=== PATIENT | female | born 1980 | race Caucasian/White ===

== ENCOUNTER 2018-05-12 19:13 | Emergency (ER) | payer MEDICAID ==
[~2018-05-12] VITALS: Ht 157.5 cm; Wt 88.6 kg
[~2018-05-12 19:13] MED LIST: CARAFATE 1GM1 G PO; DILAUDID 2MG TAB2 MG PO; HYDROCODONE/APAP; LEVOTHYROXINE PO; MULTI VITAMINS1 TAB PO; NORCO 325 MG-51 TAB PO; PAXIL 20MG20 MG PO; PEPCID 20MG TAB20 MG; PERCOCET 325 MG1 TA2 PO; PHENERGAN25 MG RC; PROTONIX 40MG T40 MG PO; SYNTHROID0.112 MG/T PO; ULTRAM 50MG TAB50 MG PO
[2018-05-12 19:15] VITALS: BP 144/82; TEMP 97.9
[2018-05-12] MEDS ORDERED: CEPHALEXIN500 M1 PO (19:38)
[2018-05-12] MEDS ORDERED: AMBIEN 5MG TABLE5 MG PO (20:03)
[2018-05-12 20:04] VITALS: PULSE 90
[2018-05-12] MEDS ORDERED: NEURONTIN300 MG/CAP PO (20:04)
[2018-05-12] MEDS ORDERED: SINGULAIR 110 MG/TAB PO (20:04)
[2018-05-12] MEDS ORDERED: ROBAXIN 50500 MG/TAB PO (20:04)
== END 2018-05-12 20:06 | disposition home or self-care (01) ==
LOC: COL.ER 19:13
DX: T21.22XA Burn of second degree of abdominal wall, initial encounter (principal); F17.210 Nicotine dependence, cigarettes, uncomplicated; Z98.890 Other specified postprocedural states; Z98.51 Tubal ligation status; Z98.84 Bariatric surgery status; X10.2XXA Contact with fats and cooking oils, initial encounter

== ENCOUNTER 2018-07-08 17:28 | Emergency (ER) | payer MEDICAID ==
[~2018-07-08] VITALS: Ht 157.5 cm; Wt 86.4 kg
[~2018-07-08 17:28] MED LIST changes: +AMBIEN 5MG TABLE5 MG PO; +CEPHALEXIN500 M1 PO; +NEURONTIN300 MG/CAP PO; +ROBAXIN 50500 MG/TAB PO; +SINGULAIR 110 MG/TAB PO
[2018-07-08 17:31] VITALS: TEMP 98.7
[2018-07-08 18:53] LABS: BASO % 0.3 % (0.0-2.0); EOS # 0.3 (0.0-0.7); EOS % 2.7 % (0-4.0); GRAN # 6.5 (1.4-6.5); GRAN % 69.3 % (42.2-75.2); HEMATOCRIT 39.6 % (37.0-47.0); HEMOGLOBIN 12.8 g/dl (12.5-16.0); LYMPH % 21.5 % (20.0-51.0); MEAN CELL VOLUME 95 fl (80.0-100.0); MEAN CORPUSCULAR HEMOGLOBIN 31 pg (27.0-31.0); MEAN CORPUSCULAR HGB CONC 32 g/dl (33.0-37.0); MEAN PLATELET VOLUME 11.2 fl (7.4-10.4); MONO # 0.6 (0.1-0.6); PLATELET COUNT 246 K/mm3 (130-400); RED BLOOD COUNT 4.18 M/mm3 (4.10-5.30); REDCELL DISTRIBUTION WIDTH-CV 13.8 % (11.5-14.5)
[2018-07-08 19:03] LABS: ALBUMIN 4.2 gm/dL (3.5-5.0); BILIRUBIN,TOTAL 0.4 mg/dL (0.0-1.0); C-REACTIVE PROTEIN 0.8 mg/dL (0.0-0.9); CALCIUM 8.9 mg/dL (8.4-10.2); CREATININE, serum 0.74 mg/dL (0.52-1.25); POTASSIUM 3.7 mmol/L (3.4-5.0); TOTAL PROTEIN 7.9 gm/dL (6.4-8.2)
[2018-07-08 19:13] LABS: ERYTHROCYTE SEDIMENTATION RATE 18 mm/hr (0-20)
[2018-07-08] MEDS ORDERED: NORCO 325 MG-51 TAB PO (19:46)
[2018-07-08] MEDS ORDERED: VALTREX1 GM PO (19:49)
[2018-07-08 20:05] VITALS: BP 104/75; PULSE 56
== END 2018-07-08 20:06 | disposition home or self-care (01) ==
LOC: COL.ER 17:28
PROVIDERS: Physician Assistant
DX: H02.844 Edema of left upper eyelid (principal); E03.9 Hypothyroidism, unspecified; M79.7 Fibromyalgia; F17.210 Nicotine dependence, cigarettes, uncomplicated
CPT/HCPCS: J1885

== ENCOUNTER → 2018-10-16 | Outpatient (CLI) | payer OTHER, MEDICAID ==
[~2018-10-16] MED LIST changes: +VALTREX1 GM PO
== END ==
LOC: COL.RAD 07:19
DX: M25.512 Pain in left shoulder (principal)

== ENCOUNTER 2019-04-28 18:26 | Emergency (ER) | payer MEDICAID ==
[~2019-04-28] VITALS: Ht 154.9 cm; Wt 86.4 kg
[2019-04-28 18:38] VITALS: BP 141/91; TEMP 97.8
[2019-04-28 21:04] LABS: BASO # 0.1 (0.0-0.2); BASO % 0.8 % (0.0-2.0); EOS # 0.2 (0.0-0.7); EOS % 2.1 % (0-4.0); GRAN # 6.7 (1.4-6.5); GRAN % 62.6 % (42.2-75.2); HEMATOCRIT 38.6 % (37.0-47.0); HEMOGLOBIN 12.6 g/dl (12.5-16.0); LYMPH % 28.4 % (20.0-51.0); MEAN CELL VOLUME 94 fl (80.0-100.0); MEAN CORPUSCULAR HEMOGLOBIN 31 pg (27.0-31.0); MEAN CORPUSCULAR HGB CONC 33 g/dl (33.0-37.0); MEAN PLATELET VOLUME 10.6 fl (7.4-10.4); MONO # 0.6 (0.1-0.6); MONO % 5.8 % (1.7-9.3); PLATELET COUNT 294 K/mm3 (130-400); RED BLOOD COUNT 4.12 M/mm3 (4.10-5.30); REDCELL DISTRIBUTION WIDTH-CV 14.2 % (11.5-14.5)
[2019-04-28 21:13] LABS: COLLECTION METHOD CLEAN CATCH
[2019-04-28 21:14] LABS: CALCIUM 9.6 mg/dL (8.4-10.2); CREATININE, serum 1.13 (0.52-1.25); POTASSIUM 3.8 mmol/L (3.4-5.0)
[2019-04-28 21:30] LABS: PH 7 (5-8); URINE APPEARANCE Hazy; URINE BACTERIA Rare /hpf; URINE BILIRUBIN Negative (NEGATIVE); URINE BLOOD 3+ (NEGATIVE); URINE COLOR Red; URINE GLUCOSE Negative (NEGATIVE); URINE KETONE Negative (NEGATIVE); URINE LEUKOCYTE ESTERASE Negative (NEGATIVE); URINE NITRATE Negative (NEGATIVE); URINE PROTEIN(semi-quant) 1+ (NEGATIVE); URINE RBC >50 /hpf; URINE UROBILINOGEN Negative (NEGATIVE)
[2019-04-28 21:45] LABS: TSH w REFLEX 83.1 uIU/mL (0.465-4.680)
[2019-04-28 23:23] VITALS: PULSE 70
== END 2019-04-28 23:23 | disposition home or self-care (01) ==
LOC: COL.ER 18:26
PROVIDERS: Emergency Medicine
DX: N93.8 Other specified abnormal uterine and vaginal bleeding (principal); E03.9 Hypothyroidism, unspecified; Z98.51 Tubal ligation status; Z98.890 Other specified postprocedural states
CPT/HCPCS: J1885

== ENCOUNTER → 2019-04-29 | Outpatient (CLI) | payer MEDICAID | LOC: COL.RAD 10:17 | DX: N83.202 Unspecified ovarian cyst, left side (principal); N92.6 Irregular menstruation, unspecified ==

== ENCOUNTER → 2019-07-02 | Outpatient (CLI) | payer MEDICAID | LOC: COL.RAD 06-08 10:30 | DX: C56.2 Malignant neoplasm of left ovary (principal) ==

== ENCOUNTER 2019-09-09 14:49 | Emergency (ER) | payer MEDICAID ==
[~2019-09-09] VITALS: Ht 154.9 cm; Wt 86.4 kg
[2019-09-09 14:55] VITALS: BP 127/85; TEMP 97.3
[2019-09-09] MEDS ORDERED: NORCO 325 MG-7.1 TAB PO (16:08)
[2019-09-09] MEDS ORDERED: AMOXICILLIN 8751 TAB PO (16:08)
[2019-09-09 16:20] VITALS: PULSE 67
== END 2019-09-09 16:18 | disposition home or self-care (01) ==
LOC: COL.ER 14:49
DX: K02.9 Dental caries, unspecified (principal); K04.7 Periapical abscess without sinus; F17.210 Nicotine dependence, cigarettes, uncomplicated; Z98.84 Bariatric surgery status

== ENCOUNTER → 2019-10-08 | Outpatient (CLI) | payer MEDICAID ==
[~2019-10-08] MED LIST changes: +AMOXICILLIN 8751 TAB PO; +NORCO 325 MG-7.1 TAB PO
== END ==
LOC: MC.RAD 17:41
DX: Z12.31 Encounter for screening mammogram for malignant neoplasm of breast (principal)

== ENCOUNTER 2021-08-29 14:42 | Emergency (ER) | payer MEDICAID ==
[~2021-08-29] VITALS: Ht 154.9 cm; Wt 77.3 kg
[2021-08-29 14:56] VITALS: TEMP 97.6
[2021-08-29 15:30] LABS: COLLECTION METHOD CLEAN CATCH
[2021-08-29 15:35] LABS: PH 7 (5-8); URINE APPEARANCE Clear (CLEAR/HAZY); URINE BACTERIA Rare /hpf (NONE SEEN); URINE BILIRUBIN Negative (NEGATIVE); URINE BLOOD Negative (NEGATIVE); URINE COLOR Straw (YELLOW); URINE GLUCOSE Negative (NEGATIVE); URINE KETONE Negative (NEGATIVE); URINE LEUKOCYTE ESTERASE Negative (NEGATIVE); URINE NITRATE Negative (NEGATIVE); URINE PROTEIN(semi-quant) Negative (NEGATIVE); URINE RBC 0-2 /hpf (0-2); URINE UROBILINOGEN Negative (NEGATIVE)
[2021-08-29] MEDS ORDERED: NORCO 325 MG-51 TAB PO (17:07)
[2021-08-29] MEDS ORDERED: FLEXERIL 1010 MG/TAB PO (17:08)
[2021-08-29 17:19] VITALS: BP 91/60; PULSE 61
== END 2021-08-29 17:22 | disposition home or self-care (01) ==
LOC: COL.ER 14:42
PROVIDERS: Physician Assistant
DX: M54.50 Low back pain, unspecified (principal); R10.32 Left lower quadrant pain; F17.200 Nicotine dependence, unspecified, uncomplicated; Z98.890 Other specified postprocedural states; Z32.02 Encounter for pregnancy test, result negative
CPT/HCPCS: J1885

== ENCOUNTER → 2021-09-27 | Outpatient (CLI) | payer OTHER, MEDICAID ==
[~2021-09-27] MED LIST changes: +FLEXERIL 1010 MG/TAB PO
== END ==
LOC: COL.RAD 09-25 07:30
DX: N85.2 Hypertrophy of uterus (principal)

== ENCOUNTER 2022-03-09 17:25 | Emergency (ER) | payer OTHER, MEDICAID ==
[~2022-03-09] VITALS: Ht 154.9 cm; Wt 79.5 kg
[2022-03-09 18:36] LABS: BASO # 0.1 K/mm3 (0.0-0.2); BASO % 0.6 % (0.0-2.0); EOS # 0.2 K/mm3 (0.0-0.7); GRAN # 7.4 K/mm3 (1.4-6.5); GRAN % 71.8 % (42.2-75.2); HEMATOCRIT 32.9 % (37.0-47.0); HEMOGLOBIN 10.8 g/dl (12.5-16.0); LYMPH # 1.7 K/mm3 (1.2-3.4); LYMPH % 16.4 % (20.0-51.0); MEAN CELL VOLUME 93 fl (80.0-100.0); MEAN CORPUSCULAR HEMOGLOBIN 31 pg (27-31); MEAN CORPUSCULAR HGB CONC 33 g/dl (33.0-37.0); MEAN PLATELET VOLUME 10.6 fl (7.4-10.4); MONO # 0.9 K/mm3 (0.1-0.6); MONO % 8.8 % (1.7-9.3); PLATELET COUNT 290 K/mm3 (130-400); RED BLOOD COUNT 3.54 M/mm3 (4.10-5.30); REDCELL DISTRIBUTION WIDTH-CV 15.6 % (11.5-14.5)
[2022-03-09 18:55] LABS: ALBUMIN 3.7 gm/dL (3.5-5.0); BILIRUBIN,TOTAL 0.4 mg/dL (0.2-1.2); C-REACTIVE PROTEIN 14.17 mg/dL (0.00-0.50); CALCIUM 8.8 mg/dL (8.4-10.2); CREATININE, serum 0.93 mg/dL (0.57-1.11); POTASSIUM 4.4 mmol/L (3.5-4.5)
[2022-03-09 21:31] VITALS: BP 132/94; PULSE 71; TEMP 98.1
== END 2022-03-09 21:46 | disposition short-term general hospital (02) ==
LOC: COL.ER 17:25
PROVIDERS: Emergency Medicine
DX: K04.7 Periapical abscess without sinus (principal); L03.211 Cellulitis of face; Z87.891 Personal history of nicotine dependence
CPT/HCPCS: J0295; J1170; J1885; J2270; Q9967

== ENCOUNTER → 2023-12-10 | Outpatient (CLI) | payer MEDICAID ==
[2023-12-10 19:13] LABS: BAND 2 % (0-10); BASOPHIL 1 % (0-2); HYPOCHROMIA 1+; LYMPHOCYTE 18 % (20.0-51.0); NEUTROPHILS 73 % (42.0-75.2)
[2023-12-10 19:14] LABS: ANISOCYTOSIS 2+
[2023-12-10 19:15] LABS: STOMATOCYTE 1+
== END ==
LOC: ZCOL.LAB 18:14
PROVIDERS: Family Medicine
DX: D50.9 Iron deficiency anemia, unspecified (principal)